=== PATIENT | male | born 1940 | race Caucasian/White ===

== ENCOUNTER 2016-10-03 09:48 | Outpatient (CLI) | payer MEDICARE, MEDICAID ==
[2016-10-03 10:17] LABS: Bilirubin Negative (Negative); Clarity Cloudy (Clear); Glucose, Urine (Dipstick) 250 mg/dL (Negative); Leukocyte Large (Negative); Nitrite Positive (Negative); Protein, Urine (Dipstick) 100 mg/dL (Neg-Trace); Specific Gravity, Urine 1.025 (1.005-1.030); pH, Urine 5.5 (5.0-9.0)
[2016-10-03 10:18] LABS: Bacteria/HPF Rare-Few HPF (None Seen); Blood, Urine Moderate (Negative); Squamous Epithelial 0-3 HPF (0-3)
[2016-10-03 11:47] LABS: Anion Gap 13 mmol/L (10-20); BUN (Urea Nitrogen) 21 mg/dL (8.4-25.7); Calc. Creatinine Clearance 0 mL/min (70-130); Calcium 9.1 mg/dL (7.8-10.44); Carbon Dioxide 25 mmol/L (23-31); Chloride 104 mmol/L (98-107); Estimated GFR-MDRD 45; Glucose 300 mg/dL (83-110); Potassium 4.4 mmol/L (3.5-5.1); Sodium 138 mmol/L (136-145)
== END 2016-10-03 09:49 | disposition home or self-care (01) ==
LOC: BURLAB 09:48
PROVIDERS: ATTEND Internal Medicine Nephrology
DX: N18.9 Chronic kidney disease, unspecified (principal)
CPT/HCPCS: 36415; 80048; 81001

== ENCOUNTER 2017-03-08 15:16 | Emergency (ER) | payer MEDICARE, MEDICAID ==
[2017-03-08] MEDS ORDERED: hydrOXYzine 25 MG TAB ONE (15:48)
== END 2017-03-08 15:59 | disposition home or self-care (01) ==
LOC: BURERS 15:16
DX: S00.561A Insect bite (nonvenomous) of lip, initial encounter (principal); S00.86XA Insect bite (nonvenomous) of other part of head, initial encounter; E11.9 Type 2 diabetes mellitus without complications; I11.9 Hypertensive heart disease without heart failure; I25.10 Atherosclerotic heart disease of native coronary artery without angina pectoris; J43.9 Emphysema, unspecified; Z79.4 Long term (current) use of insulin; Z79.899 Other long term (current) drug therapy; W57.XXXA Bitten or stung by nonvenomous insect and other nonvenomous arthropods, initial encounter
CPT/HCPCS: 99283

== ENCOUNTER 2017-09-11 16:16 | Emergency (ER) | payer MEDICARE, MEDICAID | END 2017-09-11 17:37 | disposition short-term general hospital (02) | LOC: BURERS 16:16 | DX: M79.604 Pain in right leg (principal); I25.10 Atherosclerotic heart disease of native coronary artery without angina pectoris; E11.9 Type 2 diabetes mellitus without complications; I10 Essential (primary) hypertension; Z79.4 Long term (current) use of insulin | CPT/HCPCS: 36415; 85379; 99284 ==

== ENCOUNTER 2018-01-20 20:49 | Emergency (ER) | payer MEDICARE, MEDICAID ==
[2018-01-20 21:31] LABS: #Basophils 0.1 thou/uL (0.0-0.2); #Eosinphils 0.3 thou/uL (0.0-0.7); #Lymphocytes 1.5 thou/uL (1.20-3.40); #Monocytes 0.7 thou/uL (0.11-0.59); #Neutrophils 6.6 thou/uL (1.40-6.50); %Basophils 0.8 % (0.0-1.0); %Lymphocytes 16.5 % (21.0-51.0); %Monocytes 7.8 % (0.0-10.0); %Neutrophils 71.9 % (42.0-75.0); Hemoglobin 13.9 g/dL (14.0-18.0); Mean Corpuscular HGB CONC 35.7 g/dL (32.0-36.0); Mean Corpuscular Hemoglobin 29.4 pg (27.0-31.0); Mean Corpuscular Volume 82.4 fL (78.0-98.0); Mean Platelet Volume 6.1 fL (7.4-10.4); Platelet Count 255 thou/uL (130-400); RBC Distribution Width 11.7 % (11.5-14.5); Red Blood Cell (RBC) Count 4.71 mill/uL (4.70-6.10); White Blood Cell (WBC) Count 9.2 thou/uL (4.8-10.8)
[2018-01-20 21:32] LABS: INR-International Normal Ratio 0.9; Prothrombin Time 11.8 SEC (12.0-14.7)
[2018-01-20 21:39] LABS: Troponin I Less than 0.010 ng/mL (< 0.028)
[2018-01-20 21:42] LABS: ALT (SGPT) 22 U/L (8-55); AST (SGOT) 15 U/L (5-34); Albumin 4.1 g/dL (3.4-4.8); Alkaline Phosphatase 105 U/L (40-150); Anion Gap 15 mmol/L (10-20); BUN (Urea Nitrogen) 25 mg/dL (8.4-25.7); Bilirubin, Total 0.5 mg/dL (0.2-1.2); Calc. Creatinine Clearance 0 mL/min (70-130); Calcium 9.7 mg/dL (7.8-10.44); Carbon Dioxide 25 mmol/L (23-31); Chloride 106 mmol/L (98-107); Estimated GFR-MDRD 43; Globulin 3.4 g/dL (2.4-3.5); Glucose 261 mg/dL (83-110); Potassium 4.4 mmol/L (3.5-5.1); Protein, Total 7.5 g/dL (5.8-8.1); Sodium 142 mmol/L (136-145)
--- NOTE | 2018-01-20 22:07 | CT ---
CT OF THE BRAIN WITHOUT CONTRAST: 01/20/18 The ventricles are normal in size with no shift. No intracranial bleeding, mass, edema, or sign of st roke was found. There is good burnett-white distinction. The calvarium appears normal. The paranasal sin uses and mastoid air cells are clear. IMPRESSION: No acute intracranial findings. POS: HOME
== END 2018-01-20 22:36 | disposition short-term general hospital (02) ==
LOC: BURERS 20:49
DX: G45.9 Transient cerebral ischemic attack, unspecified (principal); I25.10 Atherosclerotic heart disease of native coronary artery without angina pectoris; E11.9 Type 2 diabetes mellitus without complications; Z79.4 Long term (current) use of insulin; I10 Essential (primary) hypertension
CPT/HCPCS: 70450; 80053; 83880; 84484; 85025; 85610; 93005; 96360

== ENCOUNTER 2018-06-30 18:43 | Emergency (ER) | payer MEDICARE, MEDICAID ==
[2018-06-30] MEDS ORDERED: Sulfameth/Trimethoprim DS 800-160mg TAB ONE (19:50)
[2018-06-30] MEDS ORDERED: Adacel (T-DAP) 0.5 ML SYRINGE ONE (19:50)
[2018-06-30] MEDS ORDERED: Cephalexin 500 MG CAP ONE (19:50)
--- NOTE | 2018-06-30 21:58 | RAD ---
LEFT INDEX FINGER 06/30/18 Three views show no fracture or acute joint abnormality. Some arterial calcifications are evident in the hand and fingers. No area of bony destruction was seen. There may have been a old injury to the b ase of the middle phalanx on the volar aspect of the PIP joint. IMPRESSION: No acute bony findings. POS: HOME
== END 2018-06-30 20:04 | disposition home or self-care (01) ==
LOC: BURERS 18:43
DX: L03.114 Cellulitis of left upper limb (principal); I25.10 Atherosclerotic heart disease of native coronary artery without angina pectoris; E11.9 Type 2 diabetes mellitus without complications; Z79.4 Long term (current) use of insulin; I10 Essential (primary) hypertension; Z79.899 Other long term (current) drug therapy; Z79.82 Long term (current) use of aspirin
CPT/HCPCS: 90471; 90715

== ENCOUNTER 2019-07-14 17:04 | Emergency (ER) | payer MEDICARE, MEDICAID ==
[2019-07-14 17:45] LABS: #Basophils 0.1 thou/uL (0.0-0.2); #Eosinphils 0.3 thou/uL (0.0-0.7); #Lymphocytes 1.1 thou/uL (1.20-3.40); #Monocytes 0.8 thou/uL (0.11-0.59); #Neutrophils 5.5 thou/uL (1.40-6.50); %Basophils 0.8 % (0.0-1.0); %Eosinophils 4.2 % (0.0-10.0); %Lymphocytes 14.7 % (21.0-51.0); %Monocytes 9.9 % (0.0-10.0); %Neutrophils 70.3 % (42.0-75.0); Hemoglobin 12.7 g/dL (14.0-18.0); Mean Corpuscular HGB CONC 30.8 g/dL (32.0-36.0); Mean Corpuscular Hemoglobin 28.6 pg (27.0-31.0); Mean Corpuscular Volume 92.8 fL (78.0-98.0); Mean Platelet Volume 6.6 fL (7.4-10.4); Platelet Count 249 thou/uL (130-400); Red Blood Cell (RBC) Count 4.45 mill/uL (4.70-6.10); White Blood Cell (WBC) Count 7.8 thou/uL (4.8-10.8)
[2019-07-14 18:00] LABS: ALT (SGPT) 17 U/L (8-55); AST (SGOT) 12 U/L (5-34); Albumin 3.7 g/dL (3.4-4.8); Alkaline Phosphatase 98 U/L (40-110); Anion Gap 15 mmol/L (10-20); BUN (Urea Nitrogen) 16 mg/dL (8.4-25.7); Bilirubin, Total 0.5 mg/dL (0.2-1.2); Calc. Creatinine Clearance 0 mL/min (70-130); Calcium 8.8 mg/dL (7.8-10.44); Carbon Dioxide 27 mmol/L (23-31); Chloride 105 mmol/L (98-107); Estimated GFR-MDRD 49; Globulin 3.5 g/dL (2.4-3.5); Glucose 218 mg/dL (83-110); Potassium 4.1 mmol/L (3.5-5.1); Protein, Total 7.2 g/dL (5.8-8.1); Sodium 143 mmol/L (136-145)
--- NOTE | 2019-07-14 18:11 | RAD ---
SINGLE VIEW CHEST: 07/14/19 COMPARISON: 03/29/14 HISTORY: Cough. FINDINGS: Single view of the chest shows a normal sized cardiomediastinal silhouette. There is no evidence of c onsolidation, mass, or pleural effusion. The bones are unremarkable. IMPRESSION: No evidence of acute cardiopulmonary disease. POS: C
== END 2019-07-14 18:26 | disposition home or self-care (01) ==
LOC: BURERS 17:04
DX: J06.9 Acute upper respiratory infection, unspecified (principal); I25.10 Atherosclerotic heart disease of native coronary artery without angina pectoris; J43.9 Emphysema, unspecified; E11.9 Type 2 diabetes mellitus without complications; I10 Essential (primary) hypertension; Z79.4 Long term (current) use of insulin
CPT/HCPCS: 71045; 80053; 83605; 83880; 84484; 85025; 93005; 96360

== ENCOUNTER 2020-09-01 16:57 | Emergency (ER) | payer MEDICARE, MEDICAID ==
[2020-09-01 17:39] LABS: #Eosinphils 0.2 thou/uL (0.0-0.7); #Lymphocytes 0.8 thou/uL (1.20-3.40); #Monocytes 0.6 thou/uL (0.11-0.59); #Neutrophils 5.5 thou/uL (1.40-6.50); %Basophils 0.5 % (0.0-1.0); %Eosinophils 2.8 % (0.0-10.0); %Lymphocytes 11.6 % (21.0-51.0); %Monocytes 7.8 % (0.0-10.0); %Neutrophils 77.4 % (42.0-75.0); Hemoglobin 12.9 g/dL (14.0-18.0); Mean Corpuscular HGB CONC 31.2 g/dL (32.0-36.0); Mean Platelet Volume 7.3 fL (7.4-10.4); Platelet Count 218 thou/uL (130-400); RBC Distribution Width 13.3 % (11.5-14.5); Red Blood Cell (RBC) Count 4.44 mill/uL (4.70-6.10); White Blood Cell (WBC) Count 7.1 thou/uL (4.8-10.8)
[2020-09-01 17:53] LABS: ALT (SGPT) 17 U/L (8-55); AST (SGOT) 13 U/L (5-34); Albumin 3.5 g/dL (3.4-4.8); Alkaline Phosphatase 74 U/L (40-110); Anion Gap 12 mmol/L (10-20); BUN (Urea Nitrogen) 22 mg/dL (8.4-25.7); Bilirubin, Total 0.6 mg/dL (0.2-1.2); Calc. Creatinine Clearance 0 mL/min (70-130); Calcium 8.8 mg/dL (7.8-10.44); Carbon Dioxide 29 mmol/L (23-31); Chloride 110 mmol/L (98-107); Globulin 3.3 g/dL (2.4-3.5); Potassium 3.6 mmol/L (3.5-5.1); Protein, Total 6.8 g/dL (5.8-8.1); Sodium 147 mmol/L (136-145)
[2020-09-01 17:59] LABS: Glucose 43 mg/dL (83-110)
[2020-09-01 18:11] LABS: CKMB 1.5 ng/mL (0-6.6)
--- NOTE | 2020-09-01 19:18 | RAD ---
PORTABLE CHEST: 09/01/20 An AP portable film at 1732 is compared with a 08/28/20 study. The heart is mildly enlarged but unchanged in size. There is no vascular congestion, edema or pleural effusion. No major infiltrate was indicated. Small basilar infiltrates might be obscured by overlyin g soft tissues. IMPRESSION: No acute thoracic finding. POS: HOME
== END 2020-09-02 02:17 | disposition short-term general hospital (02) ==
LOC: BURERS 16:57
DX: E11.649 Type 2 diabetes mellitus with hypoglycemia without coma (principal); R77.8 Other specified abnormalities of plasma proteins; I25.2 Old myocardial infarction; J43.9 Emphysema, unspecified; I10 Essential (primary) hypertension; Z79.4 Long term (current) use of insulin; Z79.899 Other long term (current) drug therapy
CPT/HCPCS: 36415; 36416; 71045; 80053; 82553; 83880; 84484; 85025; 93005; 94760